=== PATIENT | male | born 1960 | race Caucasian/White ===

== ENCOUNTER → 2019-09-04 08:03 | Outpatient (CLI) | payer MEDICARE, MEDICAID, SELFPAY ==
--- NOTE | ~2019-09-04 | XR_ITS ---
XR knee RT min 4V 09/04/2019 09:02 INDICATION: Right knee pain PROCEDURE: 4 views right knee COMPARISON: No prior studies for comparison. FINDINGS: Fracture, dislocation or subluxation is not identified. The soft tissues appear within norm al limits. No foreign bodies are identified. IMPRESSION: 1: NO ACUTE BONE OR JOINT ABNORMALITY IDENTIFIED. Reviewed, dictated and finalized at location B.
--- NOTE | ~2019-09-04 | XR_ITS ---
EXAMINATION: XR chest 2V 09/04/2019 09:03 INDICATION: Dyspnea PROCEDURE: 2 view chest COMPARISON: No prior studies for comparison. FINDINGS: The lungs are clear. The cardiomediastinal silhouette is within normal limits. There are l eft lung and left hilar calcifications, consistent with chronic granulomatous disease. There are no p leural effusions. There is no pneumothorax suspected. IMPRESSION: 1: NO ACUTE CARDIOPULMONARY DISEASE. Reviewed, dictated and finalized at location B.
--- NOTE | ~2019-09-04 | XR_ITS ---
XR foot LT min 3V 09/04/2019 09:02 Indication: Left foot pain Procedure: 4 views left foot Comparison: No prior studies for comparison. Findings: There are mild degenerative changes of the midfoot. No fracture, subluxation or dislocation . There are arterial calcifications. There are degenerative calcaneal enthesophytes. There is a pseud oarthrosis between the bases of the third and fourth metatarsals. Impression: 1: Mild polyarticular osteoarthritis. Reviewed, dictated and finalized at location B. Impression: 1: Mild polyarticular osteoarthritis.
--- NOTE | ~2019-09-04 | XR_ITS ---
XR foot RT min 3V DATE: 09/04/2019 09:02 INDICATION: Right foot pain TECHNIQUE: 4 views COMPARISON: None FINDINGS: There is prominent posterior and plantar calcaneal enthesopathy. No erosive change or perio stitis is evident. Hypertrophic osteoarthritic changes are noted at the tarsal and tarsal-metatarsal joints. There is hyperostosis and pseudarthrosis at the proximal aspect of the third and fourth metatarsal willie kirill. Enthesopathy is noted at the base of the fifth metatarsal bone. No fracture or dislocation, periosteal reaction or bone destruction is detected. 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 IMPRESSION: Enthesopathy is noted at the foot at multiple sites Hyperostosis and pseudoarthrosis between the proximal shafts of the third and f ourth metatarsals Degenerative changes at the tarsal and tarsometatarsal joints
== END ==
PROVIDERS: PCP Internal Medicine; Visit Provider Internal Medicine
DX: M79.671 Pain in right foot (principal); M79.672 Pain in left foot; M25.561 Pain in right knee
CPT/HCPCS: 71046; 73564; 73630